=== PATIENT | male | born 1935 | race Caucasian/White ===

== ENCOUNTER → 2017-11-02 | Outpatient (CLI) | payer MEDICARE ==
[~2017-11-02] MED LIST: ASPIR-LOW81 MG; DIOVAN HCT 25 M1 TAB; EPA/GLA1 SGL; FISH OIL 500MG500 MG PO; METOPROLOL25 MG; SIMVASTATIN20 MG; VITAMIN C1000 M2
[2017-11-02 08:52] LABS: HEMATOCRIT 45.8 % (42.0-52.0); HEMOGLOBIN 14.7 g/dl (14.0-18.0); MEAN CELL VOLUME 90.7 fl (80.0-94.0); MEAN CORPUSCULAR HGB 29.1 pg (27.0-31.0); MEAN CORPUSCULAR HGB CONC 32.1 g/dl (33.0-37.0); RED BLOOD COUNT 5.05 10*6/uL (4.50-5.90); RED CELL DISTRI WIDTH 13.7 % (0-14.5); WHITE BLOOD COUNT 6.2 10*3/uL (4.8-10.8)
[2017-11-02 08:56] LABS: ALBUMIN 3.8 gm/dl (3.1-4.5); ALKALINE PHOSPHATASE 50 U/L (45-117); BUN 18 mg/dl (7-24); CHLORIDE 102 mmol/L (98-107); CHOLESTEROL 226 mg/dL (<200); CREATININE 1.05 mg/dL (0.70-1.30); HDL CHOLESTEROL 67 mg/dl (40-60); LDL CHOLESTEROL 136 mg/dL (9-159); POTASSIUM 4.2 mmol/L (3.5-5.1); SGOT/AST 17 IU/L (3-35); SGPT/ALT 28 U/L (12-78); SODIUM 138 mmol/L (136-145); TOTAL PROTEIN 7.3 gm/dL (6.4-8.2); TRIGLYCERIDES 113 mg/dl (<150); VLDL CHOLESTEROL 23 mg/dL (6-40)
== END | disposition home or self-care (01) ==
LOC: LAB 08:02
PROVIDERS: Family Medicine
DX: Z12.5 Encounter for screening for malignant neoplasm of prostate (principal); E78.00 Pure hypercholesterolemia, unspecified; I10 Essential (primary) hypertension; E55.9 Vitamin D deficiency, unspecified; R09.89 Other specified symptoms and signs involving the circulatory and respiratory systems

== ENCOUNTER → 2017-11-05 | Outpatient (CLI) | payer MEDICARE | END | disposition home or self-care (01) | LOC: US 10:53 | DX: I65.23 Occlusion and stenosis of bilateral carotid arteries (principal); R09.89 Other specified symptoms and signs involving the circulatory and respiratory systems ==

== ENCOUNTER → 2017-11-08 | Outpatient (CLI) | payer MEDICARE ==
[2017-11-09 09:06] LABS: PROSTATE SPECIFIC AG FREE 1.34 ng/mL; PROSTATE SPECIFIC AG, SERUM 8.7 ng/mL (0.0-4.0)
== END | disposition home or self-care (01) ==
LOC: LAB 10:08
PROVIDERS: Family Medicine
DX: R97.20 Elevated prostate specific antigen [PSA] (principal)

== ENCOUNTER → 2017-12-24 | Outpatient (CLI) | payer MEDICARE ==
[2017-12-25 15:05] LABS: PROSTATE SPECIFIC AG FREE 1.36 ng/mL; PROSTATE SPECIFIC AG, SERUM 8.9 ng/mL (0.0-4.0)
== END | disposition home or self-care (01) ==
LOC: LAB 09:34
PROVIDERS: Family Medicine
DX: R97.20 Elevated prostate specific antigen [PSA] (principal)

== ENCOUNTER → 2018-02-14 | Outpatient (CLI) | payer MEDICARE ==
[2018-02-15 08:10] LABS: PROSTATE SPECIFIC AG FREE 1.32 ng/mL; PROSTATE SPECIFIC AG, SERUM 8.2 ng/mL (0.0-4.0)
== END | disposition home or self-care (01) ==
LOC: LAB 07:40
PROVIDERS: Family Medicine
DX: R97.20 Elevated prostate specific antigen [PSA] (principal)

== ENCOUNTER → 2018-08-19 | Outpatient (CLI) | payer MEDICARE ==
[2018-08-19 10:46] LABS: HEMATOCRIT 47.4 % (42.0-52.0); HEMOGLOBIN 15.1 g/dl (14.0-18.0); MEAN CORPUSCULAR HGB 29.3 pg (27.0-31.0); MEAN CORPUSCULAR HGB CONC 31.9 g/dl (33.0-37.0); MEAN PLATELET VOLUME 10.7 fl (9.6-12.3); RED BLOOD COUNT 5.15 10*6/uL (4.50-5.90); RED CELL DISTRI WIDTH 14.2 % (0-14.5); WHITE BLOOD COUNT 6.4 10*3/uL (4.8-10.8)
[2018-08-19 11:01] LABS: ALBUMIN 3.9 gm/dl (3.1-4.5); ALKALINE PHOSPHATASE 50 U/L (45-117); BUN 16 mg/dl (7-24); CHLORIDE 107 mmol/L (98-107); CHOLESTEROL 261 mg/dL (<200); CREATININE 1.16 mg/dL (0.70-1.30); HDL CHOLESTEROL 70 mg/dl (40-60); LDL CHOLESTEROL 169 mg/dL (9-159); POTASSIUM 4.4 mmol/L (3.5-5.1); SGOT/AST 20 IU/L (3-35); SGPT/ALT 33 U/L (12-78); SODIUM 139 mmol/L (136-145); TOTAL PROTEIN 7.9 gm/dL (6.4-8.2); TRIGLYCERIDES 108 mg/dl (<150); VLDL CHOLESTEROL 22 mg/dL (6-40)
[2018-08-19 12:26] LABS: VITAMIN D, 25-HYDROXY 20.7 ng/mL (30-100)
[2018-08-20 09:07] LABS: PROSTATE SPECIFIC AG FREE 1.23 ng/mL; PROSTATE SPECIFIC AG, SERUM 7.9 ng/mL (0.0-4.0)
== END | disposition home or self-care (01) ==
LOC: LAB 09:58
PROVIDERS: Family Medicine
DX: N40.0 Benign prostatic hyperplasia without lower urinary tract symptoms (principal); R97.20 Elevated prostate specific antigen [PSA]; E55.9 Vitamin D deficiency, unspecified; E78.00 Pure hypercholesterolemia, unspecified; R53.83 Other fatigue; M19.90 Unspecified osteoarthritis, unspecified site

== ENCOUNTER → 2019-01-07 | Outpatient (CLI) | payer MEDICARE ==
[2019-01-08 08:06] LABS: PROSTATE SPECIFIC AG FREE 1.17 ng/mL
[2019-01-09 16:06] LABS: TESTOSTERONE FREE, (DIRECT) 4.4 pg/mL (6.6-18.1)
== END | disposition home or self-care (01) ==
LOC: LAB 08:43
PROVIDERS: Family Medicine
DX: R97.20 Elevated prostate specific antigen [PSA] (principal); I10 Essential (primary) hypertension